=== PATIENT | female | born 1975 | race American Indian/Alaskan Native ===

== ENCOUNTER 2018-02-19 13:12 | Inpatient (IN) | payer SELFPAY ==
[2018-02-19] MEDS ORDERED: ASPIRIN PO ONE (13:20)
[2018-02-19 13:49] LABS: Basophils # (Auto) 0.1 K/mm3 (0.0-0.1); Basophils % (Auto) 0.9 % (0.0-1.8); Eosinophils # (Auto) 0.5 K/mm3 (0.0-0.4); Eosinophils % (Auto) 8.1 % (0.0-4.3); Hematocrit 41.2 % (30.3-42.9); Hemoglobin 13.7 gm/dl (10.1-14.3); Lymphocytes # (Auto) 1.4 K/mm3 (1.2-5.4); Lymphocytes % (Auto) 22.4 % (13.4-35.0); Mean Corpuscular HGB Conc 33 % (30-34); Mean Corpuscular Hemoglobin 27 pg (28-32); Mean Corpuscular Volume 80 fl (79-97); Monocytes # (Auto) 0.4 K/mm3 (0.0-0.8); Monocytes % (Auto) 6.7 % (0.0-7.3); Platelet Count 264 K/mm3 (140-440); Red Blood Count 5.13 M/mm3 (3.65-5.03); Red Cell Distribution Width 15.4 % (13.2-15.2)
[2018-02-19 14:08] LABS: BUN/Creatinine Ratio 18; Blood Urea Nitrogen 9 mg/dL (7-17); Calcium 9.9 mg/dL (8.4-10.2); Hemolysis Index 15
[2018-02-19] MEDS ORDERED: ATROVENT IH ONE (19:59)
[2018-02-19] MEDS ORDERED: PROVENTIL IH ONE (19:59)
[2018-02-19] MEDS ORDERED: K-DUR PO ONE (20:04)
--- NOTE | 2018-02-19 20:32 | XRay Report ---
FINAL REPORT PROCEDURE: XR CHEST 1V AP TECHNIQUE: Chest radiograph anteroposterior view. CPT 53755 HISTORY: dyspnea COMPARISON: No prior studies are available for comparison. FINDINGS: Heart: Normal. Mediastinum/Vessels: Normal. Lungs/Pleural space: There is opacification of the right lower lung with mild effusion. Acute infectious process in the right lower lung is suspected. The left lung is clear.. Bony thorax: No acute osseous abnormality. Life support devices: None. IMPRESSION: Acute right lower lung pneumonia with mild effusion is suspected..
[2018-02-19 20:40] LABS: Basophils % (Auto) 0.7 % (0.0-1.8); Eosinophils # (Auto) 0.6 K/mm3 (0.0-0.4); Eosinophils % (Auto) 8.5 % (0.0-4.3); Hematocrit 40.8 % (30.3-42.9); Hemoglobin 13.5 gm/dl (10.1-14.3); Lymphocytes # (Auto) 1.7 K/mm3 (1.2-5.4); Lymphocytes % (Auto) 25.1 % (13.4-35.0); Mean Corpuscular HGB Conc 33 % (30-34); Mean Corpuscular Hemoglobin 27 pg (28-32); Mean Corpuscular Volume 81 fl (79-97); Monocytes # (Auto) 0.6 K/mm3 (0.0-0.8); Monocytes % (Auto) 8.8 % (0.0-7.3); Platelet Count 242 K/mm3 (140-440); Red Blood Count 5.04 M/mm3 (3.65-5.03); Red Cell Distribution Width 15.2 % (13.2-15.2)
[2018-02-19 20:50] LABS: BUN/Creatinine Ratio 26; Blood Urea Nitrogen 13 mg/dL (7-17); Calcium 9.7 mg/dL (8.4-10.2); Hemolysis Index 7
[2018-02-19] MEDS ORDERED: ZITHROMAX 500 MG in NACL 0.9% 250ML 250 ML IV ONE (22:45)
[2018-02-19] MEDS ORDERED: NACL 0.9% 1000 ML 1,000 ML IV ONE (22:59)
[2018-02-19] MEDS ORDERED: NACL 0.9% 1000 ML 1,000 ML ONE (22:59)
[2018-02-19] MEDS ORDERED: cefTRIAXone 1 GM in NACL 0.9% 20 ML IV ONE (23:00)
--- NOTE | 2018-02-19 23:14 | Emergency Department Report ---
ED Shortness of Breath HPI - General Chief Complaint: Dyspnea/Respdistress Stated Complaint: SOB/CHEST PAIN Time Seen by Provider: 02/19/18 19:48 Source: patient Mode of arrival: Ambulatory Limitations: No Limitations - Related Data Previous Rx's Medication Instructions Recorded Last Taken Type Levofloxacin [Levaquin TAB] 500 mg PO QDAY #10 tablet 02/17/16 Unknown Rx Prednisone [predniSONE 10 mg 10 mg PO .TAPER #1 tab.ds.pk 02/17/16 Unknown Rx (6-Day Pack, 21 Tabs)] Allergies Allergy/AdvReac Type Severity Reaction Status Date / Time No Known Allergies Allergy Verified 02/19/18 13:18 ED Review of Systems ROS: Stated complaint: SOB/CHEST PAIN Other details as noted in HPI ED Past Medical Hx - Past Medical History Hx Diabetes: Yes (gestational diabetes with previous pg) Additional medical history: ECTOPIC - Social History Smoking Status: Never Smoker Substance Use Type: None - Medications Home Medications: Home Medications Medication Instructions Recorded Confirmed Last Taken Type Levofloxacin [Levaquin TAB] 500 mg PO QDAY #10 tablet 02/17/16 Unknown Rx Prednisone [predniSONE 10 mg 10 mg PO .TAPER #1 tab.ds.pk 02/17/16 Unknown Rx (6-Day Pack, 21 Tabs)] ED Physical Exam - General Limitations: No Limitations ED Course Vital Signs 02/19/18 02/19/18 02/19/18 13:18 20:53 21:11 Temperature 98.7 F Pulse Rate 105 H Pulse Rate [ 96 H 98 H Posterior Bilateral] Respiratory 26 H Rate Respiratory 20 18 Rate [Posterior Bilateral] Blood Pressure 121/73 Blood Pressure [Left] O2 Sat by Pulse 97 Oximetry 02/19/18 22:56 Temperature Pulse Rate 130 H Pulse Rate [ Posterior Bilateral] Respiratory 16 Rate Respiratory Rate [Posterior Bilateral] Blood Pressure Blood Pressure 124/83 [Left] O2 Sat by Pulse 100 Oximetry ED Medical Decision Making - Lab Data Result diagrams: 02/19/18 20:27 02/19/18 20:08 - EKG Data Rate: tachycardia (sinus tachycardia 112; pvcs; no acute st elevation or depression) - Medical Decision Making pneumonia,pe, costochondritis,viral bronchitis I discussed this pt with Dr Hdz who stated he will admit Critical care attestation.: If time is entered above; I have spent that time in minutes in the direct care of this critically ill patient, excluding procedure time. ED Disposition Is pt being admited?: Yes Does the pt Need Aspirin: No Condition: Fair Referrals: PRASANTH STOVALL MD [Primary Care Provider] - 3-5 Days Time of Disposition: 23:12
[2018-02-20] MEDS ORDERED: PROVENTIL IH ONE (00:08)
[2018-02-20] MEDS ORDERED: ATROVENT IH ONE (00:08)
[2018-02-20] MEDS ORDERED: PROVENTIL IH PRN (01:01)
[2018-02-20] MEDS ORDERED: GUAIFENESIN DM SYRUP PO PRN (01:03)
[2018-02-20] MEDS ORDERED: TYLENOL PO PRN (01:07)
[2018-02-20] MEDS ORDERED: ROCEPHIN/NS 1 GM/50 ML 1 GM/50 ML BAG IV SCH ×2 (10:00)
[2018-02-20] MEDS ORDERED: ZITHROMAX 500 MG in NACL 0.9% 250ML 250 ML IV SCH (10:00)
[2018-02-20] MEDS ORDERED: HEPARIN SUB-Q SCH (10:00)
--- NOTE | 2018-02-20 10:18 | History and Physical Report ---
CHIEF COMPLAINT: Shortness of breath. Other complaints include cough. HISTORY OF PRESENT ILLNESS: The patient is a 42-year-old female who said she has been having shortness of breath going on for a few days, and was associated with cough productive of brown sputum. The patient also complained about chest discomfort with coughing. There is no history of fever, no history of chills. No history of nausea or vomiting. The patient complains also of a rapid heartbeat, presented to the Emergency Room. PAST SURGICAL HISTORY: Pertinent for pneumonia. FAMILY HISTORY: Noncontributory. SOCIAL HISTORY: The patient lives with family. Does not smoke, does not drink, and does not use illicit drugs. MEDICATIONS: The patient is on Levaquin 500 mg daily, prednisone dose pack, a 6-day pack, 10 mg. ALLERGIES: There are no known drug allergies. REVIEW OF SYSTEMS: CONSTITUTIONAL: There is no fever, no chills, no diaphoresis. HEENT: There is no headache or sore throat. CARDIOVASCULAR SYSTEM: There is chest discomfort with coughing with no orthopnea. RESPIRATORY SYSTEM: Shortness of breath is present. Cough is present. GASTROINTESTINAL SYSTEM: There is no nausea, no vomiting, no abdominal pain, diarrhea or constipation. NEUROLOGICAL SYSTEM: There is no numbness, no dizziness, no altered mental status. MUSCULOSKELETAL SYSTEM: There is no joint pain or swelling. DERMATOLOGICAL SYSTEM: There is no skin rash or itching. GENITOURINARY SYSTEM: There is no dysuria, hematuria, or flank pain. Rest of system review is normal. ALLERGIES: There are no known drug allergies. PHYSICAL EXAMINATION: GENERAL: At the time of exam, the patient was found to be alert, oriented x 3, in mild distress due to shortness of breath. VITAL SIGNS: Shows normal temperature, with pulse of 115, respiration 18, blood pressure 124/83, O2 sat of 100% on room air. HEENT: Showed pupils to be equal, round, and reactive to light and accommodation. Extraocular muscles are intact. NECK: Supple with no JVD or carotid bruit. CARDIOVASCULAR SYSTEM: Showed normal first and second heart sounds with no gallops or murmur. RESPIRATORY SYSTEM: Show good air entry on both sides of the lungs with mild respiratory wheezing and crackles in the right lower lung field area. GASTROINTESTINAL SYSTEM: Show abdomen to be full, soft, and nontender with no organomegaly or rigidity. NEUROLOGICAL: Shows no focal deficits. MUSCULOSKELETAL SYSTEM: Show no joint swelling or tenderness. DERMATOLOGICAL SYSTEM: Show no skin rash. GENITOURINARY SYSTEM: Showing no costovertebral angle tenderness. PERTINENT LABORATORY AND IMAGING STUDIES: The patient has CBC done with normal hemoglobin and normal hematocrit with CBC differential showing elevated eosinophil count of 8.1%. The patient's coagulation studies came back normal. Chemistry shows low potassium level of 3.3, with a low chloride level of 97.3, and normal sodium level. The patient's renal function test was unremarkable. Serum test came back negative. Troponin level was umremarkable. DIAGNOSES: Right lung pneumonia and low potassium level. PLAN: The patient will be admitted to medical floor as inpatient using community acquired pneumonia pathway. The patient will be on IV ceftriaxone 1 g daily and IV Zithromax 500 mg daily. The patient will also be on Tylenol 650 mg by mouth every 4 hours for fever and headache. The patient has already received a dose of potassium 40 mEq by mouth in the Emergency Room. The patient will be on Robitussin-DM 20 mL every 4 hours for cough. DIET: Will be regular diet. The patient will be on oxygen by nasal cannula at 2 liter per minute. JOB# [id number] OCN/NTS
[2018-02-20] MEDS ORDERED: cefTRIAXone 1 GM in NACL 0.9% 20 ML IV SCH (11:00)
--- NOTE | 2018-02-20 11:51 | Discharge Summary ---
Providers - Providers Date of Admission: 02/20/18 00:58 Date of discharge: 02/20/18 Attending physician: DELMAR TRUJILLO Primary care physician: PRASANTH STOVALL Hospitalization Condition: Stable Hospital course: Patient is a 42 yo [place] woman (speaks Chinese and Yorabu) without chronic medical conditions who presented with right sided cp and cough. She was found to have a pulse ox of 87% room due to right lower lobe pneumonia with pleural effusion. She has been weaned off o2. -Acute hypoxic respiratory failure: o2 has been weaned off at rest, 97%, will evaluate with activity -Sepsis pneumonia, poa as evident by rr 26, hr 105: continue abx -Acute RLL pneumonia with pleural effusion: abx, Disposition: DC- TO HOME OR SELFCARE Time spent for discharge: 35 minutes Core Measure Documentation - Palliative Care Palliative Care/ Comfort Measures: Not Applicable - Core Measures Any of the following diagnoses?: none - VTE Discharge Requirements Deep Vein Thrombosis/Pulmonary Embolism Present on Admission: No Has pt received <5 days of overlap therapy or INR<2.0: No Anticoagulant overlap therapy prescribed at discharge: No Contraindication No Overlap Therapy order at DC: Not Indicated Exam - Physical Exam Narrative exam: GEN: WDWN, NAD, Awake, Alert, Orientated HEENT: NCAT, EOMI, PERRL, OP Clear NECK: supple, no adenopathy, no thyromegaly, no JVD CVS/HEART: RRR, normal S1S2, pulses present bilaterally CHEST/LUNGS: right sided coarse bs, good bs, Symmetrical chest expansion, good air entry bilaterally GI/Abdomen: soft, NTND, good bowel sounds, no guarding or rebound /Bladder: no suprapubic tenderness, no CVA or paraspinal tenderness EXT/Skin: no c/c/e, no obvious rash MSK: FROM x 4 Neuro: CN 2-12 grossly intact, no new focal deficits Psych: calm - Constitutional Vitals: Temp Pulse Resp BP Pulse Ox 98.3 F 113 H 18 120/73 95 02/20/18 07:26 02/20/18 07:26 02/20/18 07:26 02/20/18 07:26 02/20/18 10:21 Plan Activity: other (no strenous activity) Diet: regular Follow up with: PRASANTH STOVALL MD [Primary Care Provider] - 3-5 Days Forms: Work/School Release Form Prescriptions: ALBUTEROL Inhaler [ProAir HFA Inhaler] 2 puff IH QID PRN #1 inhalation PRN Reason: Shortness Of Breath Amoxicillin/K Clav Tab [Augmentin 875 mg] 1 tab PO Q12HR #20 tab guaiFENesin/DM 100/10MG [Robitussin Dm] 10 ml PO Q4HR PRN #7 day PRN Reason: Cough
[2018-02-20] MEDS ORDERED: ZITHROMAX PO SCH (12:00)
[2018-02-20 16:45] VITALS: BP 100/71
== END 2018-02-20 17:34 | disposition home or self-care (01) | DRG 871 ==
LOC: ED 13:12 → 3A 02-20 00:58
PROVIDERS: ADMIT Internal Medicine; ATTEND Internal Medicine
DX: A41.9 Sepsis, unspecified organism (principal); J18.1 Lobar pneumonia, unspecified organism; J96.01 Acute respiratory failure with hypoxia; J90 Pleural effusion, not elsewhere classified
CPT/HCPCS: 36415; 71045; 80048; 83735; 84484; 84703; 85025; 85379; 93005; 93010; 94640; 96365; 96375; 96376; J0456; J0696; J1644; J2930; J7030; J7050

== ENCOUNTER 2019-03-10 18:17 | Emergency (ER) | payer MEDICAID ==
--- NOTE | 2019-03-10 18:44 | Emergency Department Report ---
Blank Doc - Documentation Documentation: This is a 43-year-old female that presents with headache. Stated something fell on her head. Denies any LOC. Denies any neck or back pain. This initial assessment/diagnostic orders/clinical plan/treatment(s) is/are subject to change based on patient's health status, clinical progression and re- assessment by fellow clinical providers in the ED. Further treatment and workup at subsequent clinical providers discretion. Patient/guardians urged not to elope from the ED as their condition may be serious if not clinically assessed and managed. Initial orders include: 1- Patient sent to [facility] for further evaluation and treatment 2- Ct head
[2019-03-10 18:45] VITALS: BP 126/72
[2019-03-10] MEDS ORDERED: TYLENOL PO ONE (18:45)
[2019-03-10] MEDS ORDERED: TYLENOL ONE (18:48)
--- NOTE | 2019-03-10 20:41 | Cat Scan Report ---
PROCEDURE: CT HEAD/BRAIN WO CON TECHNIQUE: Computerized tomography of the head was performed without contrast material. CT DOSE LENGTH PRODUCT: 805.4 mGycm HISTORY: headache COMPARISONS: None . FINDINGS: Skull and scalp: Normal . Paranasal sinuses: Normal . Ventricles and subarachnoid spaces: Normal . Cerebrum: No evidence of hemorrhage, acute infarction or mass . Cerebellum and brainstem: No evidence of hemorrhage, acute infarction or mass . Vasculature: Normal . Other: None . ASPECTS: 10 IMPRESSION: Normal Examination . This document is electronically signed by Conrado Limon MD., Mar 10 2019 08:39:21 PM ET
[2019-03-10] MEDS ORDERED: TORADOL IM ONE (21:53)
[2019-03-10] MEDS ORDERED: ZOFRAN ODT PO ONE (21:53)
[2019-03-10] MEDS ORDERED: TORADOL ONE (22:08)
--- NOTE | 2019-03-10 23:06 | Emergency Department Report ---
ED Head Trauma HPI - General Chief complaint: Headache Stated complaint: HEAD PAIN Time Seen by Provider: 03/10/19 18:43 Source: patient Mode of arrival: Ambulatory Limitations: No Limitations - History of Present Illness Initial comments: Patient is a 43-year-old -British female with no past medical history except asthma who presents to the ED with complaint of persistent headache for the last 1 week after an object hit him on the head while shopping at the grocery store and week ago. Patient denies changes in vision, loss of consciousness, nausea, vomiting, dizziness, neck pain, chest pain, shortness of breath, syncope or seizures. The patient says that she has been taking pzfe-nwe-vebysed medication with no relief. Patient states that the headache is intermittent. MD Complaint: head injury, head pain, other (HEAVY OBJECT FELL ON HER HEAD ) -: Sudden, week(s) (1) Arrival Conditions: Negative: C-spine immobilization present, spinal board immobilization present Mechanism of Injury: other (Heavy object hit her head 1 week ago at a grocery store) Location: parietal Loss of Consciousness: no Previous Trauma to this Area: No Place: other (grocery stone) Radiation: none Severity: severe Severity scale (0 -10): 7 Quality: sharp, aching Consistency: intermittent Provoking factors: none known Other Injuries: none Associated Symptoms: denies: confusion, amnesia, repetitive questioning, vision changes, nausea, vomiting, vertigo, syncope, numbness, weakness, tingling, neck pain - Related Data Previous Rx's Medication Instructions Recorded Last Taken Type ALBUTEROL Inhaler (OR & NICU) 2 puff IH QID PRN #1 inhalation 02/20/18 Unknown Rx [ProAir HFA Inhaler] Acetaminophen [Acetaminophen TAB] 325 mg PO Q4H PRN #30 tablet 02/20/18 Unknown Rx Amoxicillin/K Clav Tab [Augmentin 1 tab PO Q12HR #20 tab 02/20/18 Unknown Rx 875 mg] guaiFENesin/DM 100/10MG 10 ml PO Q4HR PRN #7 day 02/20/18 Unknown Rx [Robitussin Dm] Butalb/Acetamin/Caff 50-325-40 1 each PO Q4H PRN #15 tablet 03/10/19 Unknown Rx [Fioricet] Cyclobenzaprine [Flexeril] 10 mg PO Q8H PRN #15 tablet 03/10/19 Unknown Rx Ketorolac [Toradol] 10 mg PO Q8H PRN #20 tablet 03/10/19 Unknown Rx Allergies/Adverse reactions: Allergies Allergy/AdvReac Type Severity Reaction Status Date / Time No Known Allergies Allergy Verified 02/19/18 13:18 ED Review of Systems ROS: Stated complaint: HEAD PAIN Other details as noted in HPI Comment: All other systems reviewed and negative Constitutional: no symptoms reported, see HPI. denies: diaphoresis, fever, malaise, weakness Eyes: as per HPI. denies: eye pain, eye discharge, vision change ENT: as per HPI. denies: ear pain, throat pain, dental pain, hearing loss Respiratory: no symptoms reported, see HPI. denies: cough, shortness of breath, SOB with exertion Cardiovascular: as per HPI. denies: chest pain, palpitations, dyspnea on exertion, edema, syncope, paroxysmal nocturnal dyspnea Endocrine: no symptoms reported, see HPI. denies: excessive sweating, flushing, intolerance to cold, increased thirst, increased urine, unexplained weight gain Gastrointestinal: as per HPI. denies: abdominal pain, nausea, vomiting, diarrhea, hematemesis Genitourinary: as per HPI. denies: urgency, dysuria, hematuria, discharge Musculoskeletal: as per HPI. denies: back pain, joint swelling, arthralgia Skin: as per HPI. denies: rash, lesions, change in color, change in hair/nails Neurological: as per HPI, headache. denies: weakness, numbness, paresthesias, confusion, abnormal gait, vertigo Psychiatric: as per HPI Hematological/Lymphatic: as per HPI ED Past Medical Hx - Past Medical History Hx Congestive Heart Failure: No Hx Diabetes: Yes (gestational diabetes with previous pg) Hx Asthma: Yes (presently) Additional medical history: ECTOPIC - Surgical History Past Surgical History?: No - Social History Smoking Status: Never Smoker Substance Use Type: None - Medications Home Medications: Home Medications Medication Instructions Recorded Confirmed Last Taken Type ALBUTEROL Inhaler (OR & NICU) 2 puff IH QID PRN #1 inhalation 02/20/18 Unknown Rx [ProAir HFA Inhaler] Acetaminophen [Acetaminophen TAB] 325 mg PO Q4H PRN #30 tablet 02/20/18 Unknown Rx Amoxicillin/K Clav Tab [Augmentin 1 tab PO Q12HR #20 tab 02/20/18 Unknown Rx 875 mg] guaiFENesin/DM 100/10MG 10 ml PO Q4HR PRN #7 day 02/20/18 Unknown Rx [Robitussin Dm] Butalb/Acetamin/Caff 50-325-40 1 each PO Q4H PRN #15 tablet 03/10/19 Unknown Rx [Fioricet] Cyclobenzaprine [Flexeril] 10 mg PO Q8H PRN #15 tablet 03/10/19 Unknown Rx Ketorolac [Toradol] 10 mg PO Q8H PRN #20 tablet 03/10/19 Unknown Rx ED Physical Exam - General Limitations: No Limitations General appearance: alert, in no apparent distress - Head Head exam: Present: other (palpable parietal scalp soft tissue swelling with localized tenderenss) - Eye Eye exam: Present: normal appearance, PERRL, EOMI. Absent: scleral icterus, conjunctival injection, periorbital tenderness Pupils: Present: normal accommodation - ENT ENT exam: Present: normal exam, normal orophraynx, mucous membranes moist, TM's normal bilaterally, normal external ear exam - Neck Neck exam: Present: normal inspection. Absent: tenderness, full ROM, lymphadenopathy - Respiratory Respiratory exam: Present: normal lung sounds bilaterally. Absent: respiratory distress, rhonchi, chest wall tenderness - Cardiovascular Cardiovascular Exam: Present: regular rate, normal rhythm, normal heart sounds - GI/Abdominal GI/Abdominal exam: Present: soft, normal bowel sounds. Absent: distended, tenderness, hyperactive bowel sounds, hypoactive bowel sounds - Extremities Exam Extremities exam: Present: normal inspection, full ROM, normal capillary refill - Back Exam Back exam: Present: normal inspection, full ROM. Absent: tenderness, CVA tenderness (R), CVA tenderness (L), muscle spasm, vertebral tenderness - Neurological Exam Neurological exam: Present: alert, oriented X3, CN II-XII intact, normal gait, reflexes normal - Psychiatric Psychiatric exam: Present: normal affect - Skin Skin exam: Present: warm, dry, intact, normal color ED Course Vital Signs 03/10/19 03/10/19 18:43 19:02 Temperature 97.3 F L Pulse Rate 85 Respiratory 16 18 Rate Blood Pressure 126/72 O2 Sat by Pulse 100 Oximetry - Reevaluation(s) Reevaluation #1: 03/10/19 23:11 Patient is alert and oriented 3 and is not in distress. Patient was treated for pain in the ED and head CT scan without contrast shows no acute intracranial abnormalities. On reevaluation, patient's pain is well controlled with medications, and patient was discharged home on medications and advised to follow-up with her primary care physician in 2-3 days for reevaluation or return to the ED immediately if symptoms get worse. - Radiology Data Radiology results: report reviewed, image reviewed No acute intracranial abnormality - Medical Decision Making Patient is alert and oriented 3 and is not in distress. Patient's symptoms are likely due to a post concussion headache syndrome. Patient was treated for pain and head CT scan without contrast shows no acute intracranial abnormalities. Patient was discharged home accompanied medications and advised follow-up with her primary care physician in 2-3 days for reevaluation. Patient was advised to return to the ED immediately if symptoms get worse. At the time of the patient discharged all have vital signs were stable. - Core Measures AMI Core Measures Followed: No Measure Exclusions: not indicated - NEXUS Criteria Focal neurological deficit present: No Midline spinal tenderness present: No Altered level of consciousness: No Intoxication present: No Distracting injury present: No NEXUS results: C-Spine can be cleared clinically by these results. Imaging is not required. Critical care attestation.: If time is entered above; I have spent that time in minutes in the direct care of this critically ill patient, excluding procedure time. ED Disposition Clinical Impression: Post-concussion headache Head injury due to trauma Qualifiers: Encounter type: initial encounter Qualified Code(s): S09.90XA - Unspecified injury of head, initial encounter Scalp contusion Qualifiers: Encounter type: initial encounter Qualified Code(s): S00.03XA - Contusion of scalp, initial encounter Disposition: DC-01 TO HOME OR SELFCARE Is pt being admited?: No Does the pt Need Aspirin: No Condition: Stable Instructions: Post Concussion Syndrome (ED), Acute Headache (ED) Additional Instructions: Take medications with food, drink plenty of fluids and follow-up with your primary care physician is advised. Return to the ED immediately if symptoms get worse. Prescriptions: Butalb/Acetamin/Caff 50-325-40 [Fioricet] 1 each PO Q4H PRN #15 tablet PRN Reason: Headache Cyclobenzaprine [Flexeril] 10 mg PO Q8H PRN #15 tablet PRN Reason: Spasms Ketorolac [Toradol] 10 mg PO Q8H PRN #20 tablet PRN Reason: Pain Referrals: DOUGLAS SEGURA MD [Primary Care Provider] - 3-5 Days Time of Disposition: 23:06 Print Language: [place]
== END 2019-03-10 23:19 | disposition home or self-care (01) ==
LOC: ED 18:17
DX: F07.81 Postconcussional syndrome (principal); J45.909 Unspecified asthma, uncomplicated
CPT/HCPCS: 70450; 96372; 99283; J1885; Q0162